=== PATIENT | female | born 1975 | race Hispanic/Latino ===

== ENCOUNTER 2018-02-20 09:29 | Day surgery (SDC) | payer BC, OTHER ==
[2018-02-19 15:32] VITALS: BP 116/74
[2018-02-20] VITALS (15 sets, daily range): BP systolic 113–164; BP diastolic 68–86
[~2018-02-20] VITALS: Ht 161.3 cm; Wt 69.7 kg
[2018-02-20] MEDS: CEFAZOLIN SODIUM 1 GM VIAL IVP SCH ×2 (06:00→13:15)
[~2018-02-20 09:29] MED LIST: DIPH25 PO
[2018-02-20] MEDS ORDERED: LACTATED RINGERS 1000ML 1,000 ML IV ONE (11:19)
[2018-02-20] MEDS ORDERED: SCOPOLAMINE HYDROBROMIDE 1 EACH ADH..PATCH TD ONE (12:58)
[2018-02-20] MEDS ORDERED: BUPIVACAINE/PF 0.5% 30ML VIAL ONE (13:03)
[2018-02-20] MEDS ORDERED: NEOMY SULF/POLYMYXIN B SULFATE 1 ML AMPUL IR ONE (13:03)
[2018-02-20] MEDS ORDERED: FENTANYL CITRATE PF 50 MCG/1 ML 2ML VIAL ONE (13:14)
[2018-02-20] MEDS ORDERED: MIDAZOLAM HCL 1 MG/ML 2ML VIAL ONE (13:14)
[2018-02-20] MEDS ORDERED: FENTANYL CITRATE PF 50 MCG/1 ML 5ML AMP IV ONE (13:28)
[2018-02-20] MEDS ORDERED: ONDANSETRON HCL MDV 20ML 2 MG/ML VIAL ONE (14:14)
[2018-02-20] MEDS ORDERED: DEXAMETHASONE SOD PHOSPHATE 10MG/ML 1ML VIAL ONE (14:14)
[2018-02-20] MEDS ORDERED: MEPERIDINE-PF 25 MG/ML SYG ONE ×2 (14:31→14:49)
[2018-02-20] MEDS ORDERED: PROMETHAZINE HCL 25 MG/ML 1ML AMPULE IM ONE (14:49)
== END 2018-02-20 17:05 | disposition home or self-care (01) ==
LOC: DAH 09:29 → SUH 09:29
PROVIDERS: ATTEND Surgery
DX: K43.2 Incisional hernia without obstruction or gangrene (principal); M79.89 Other specified soft tissue disorders; R06.02 Shortness of breath; G43.909 Migraine, unspecified, not intractable, without status migrainosus; Z98.890 Other specified postprocedural states; Z79.899 Other long term (current) drug therapy
CPT/HCPCS: 22900; 49560; 49568; 88304; A4218; A4450; A4452; A4510; A4600; J0690; J1100; J2175 ×2; J2250; J2550; J3010 ×2; J3490 ×2; J7030; J7120

== ENCOUNTER → 2025-02-07 | Outpatient (CLI) | payer BC ==
[~2025-02-07] MED LIST changes: +DIPH-1242 PO; -DIPH25 PO
--- NOTE | 2025-02-07 12:51 | HMCIMG ---
MR ELBOW RIGHT W/O HISTORY: Right lateral epicondylitis COMPARISON: None TECHNIQUE: MRI of the right elbow was performed utilizing multiple pulse sequences in axial, coronal and sagittal planes. Patient was not given contrast through intravenous route. FINDINGS: No abnormal signal intensity is seen of the visualized bony structure. Small joint effusion is seen. The bicipital tendon, brachialis tendon and triceps tendons are grossly intact. The medial collateral ligament is intact. There is slight soft tissue swelling noted around the lateral collateral ligament suspicious for lateral epicondylitis. No evidence of fracture or dislocation is seen. IMPRESSIONS: 1. No acute displaced fracture. Findings may be related to lateral epicondylitis. Small joint effusion is seen.
== END | disposition home or self-care (01) ==
LOC: RAH 07:25
PROVIDERS: ATTEND Orthopaedic Surgery
DX: M25.421 Effusion, right elbow (principal); M77.11 Lateral epicondylitis, right elbow
CPT/HCPCS: 73221